=== PATIENT | male | born 1965 | race Caucasian/White ===

== ENCOUNTER → 2023-11-12 | Outpatient (CLI) | payer BC | LOC: M LAB 09:19 | PROVIDERS: ATTEND Internal Medicine Pulmonary Disease | DX: R91.8 Other nonspecific abnormal finding of lung field (principal) ==

== ENCOUNTER 2023-11-26 08:42 | Day surgery (SDC) | payer BC ==
[~2023-11-26] VITALS: Ht 177.8 cm; Wt 116.6 kg
[~2023-11-26 08:42] MED LIST: AMLO1TAB24 PO; ATOR40TA75 PO; EPINEPHrine 1MG/10ML SYRINGE 1.5IN As Ordered ONE; METO1TAB32 PO
[2023-11-26] MEDS ORDERED: LR 1,000 ML IV SCH ×2 (09:15→11:35)
[2023-11-26] MEDS ORDERED: ROCURONIUM BROMIDE 50MG/5ML VIAL As Ordered ONE (10:48)
[2023-11-26] MEDS ORDERED: LIDOCAINE 2% 100MG/5ML SDV (FOR ANES.) As Ordered ONE (10:48)
[2023-11-26] MEDS ORDERED: propofoL 200 MG/20 ML VIAL As Ordered ONE (10:48)
[2023-11-26] MEDS ORDERED: fentaNYL 100 MCG/2 ML INJECTION As Ordered ONE (10:48)
[2023-11-26] MEDS ORDERED: ONDANSETRON 4MG 2ML VIAL As Ordered ONE (10:48)
[2023-11-26] MEDS ORDERED: MIDAZOLAM INJ 2MG/2ML VIAL As Ordered ONE (10:49)
[2023-11-26] MEDS: CETACAINE SPRAY 5GM As Ordered ONE (11:12)
[2023-11-26] MEDS ORDERED: SUGAMMADEX SODIUM 500 MG/5 ML VIAL (BRIDION) As Ordered ONE (11:18)
[2023-11-26] MEDS ORDERED: fentaNYL 100 MCG/2 ML INJECTION IV PRN (11:35)
[2023-11-26] MEDS ORDERED: oxyCODONE 5MG TAB PO PRN (11:35)
[2023-11-26] MEDS ORDERED: HYDROMORPHONE HCL 0.5 MG/ 0.5 ML SYRINGE IV PRN (11:35)
[2023-11-26] MEDS ORDERED: ONDANSETRON 4MG 2ML VIAL IV PRN (11:35)
[2023-11-26 13:05] VITALS: BP 138/89; TEMP 97.4; O2SAT 96
== END 2023-11-26 13:15 | disposition home or self-care (01) ==
LOC: M SDC 08:42
PROVIDERS: ATTEND Internal Medicine Pulmonary Disease
DX: R59.0 Localized enlarged lymph nodes (principal); G47.30 Sleep apnea, unspecified; Z79.899 Other long term (current) drug therapy
CPT/HCPCS: 31652; 71045; 88173; 88305; J1100; J2250; J2405; J3010